=== PATIENT | male | born 1995 | race Hispanic/Latino ===

== ENCOUNTER 2016-12-25 22:22 | Emergency (ER) | payer SELFPAY ==
[2016-12-25 22:48] LABS: #Basophils 0.1 thou/uL (0.0-0.2); #Eosinphils 0.2 thou/uL (0.0-0.7); #Lymphocytes 3.6 thou/uL (1.20-3.40); #Monocytes 0.8 thou/uL (0.11-0.59); #Neutrophils 5.3 thou/uL (1.40-6.50); %Basophils 0.6 % (0.0-1.0); %Eosinophils 1.5 % (0.0-10.0); %Lymphocytes 36.7 % (21.0-51.0); %Monocytes 7.7 % (0.0-10.0); Hematocrit 49.4 % (42.0-52.0); Mean Platelet Volume 6.6 fL (7.4-10.4); Red Blood Cell (RBC) Count 5.43 mill/uL (4.70-6.10); White Blood Cell (WBC) Count 9.9 thou/uL (4.8-10.8)
[2016-12-25 23:10] LABS: ALT (SGPT) 32 U/L (8-55); AST (SGOT) 26 U/L (5-34); Alkaline Phosphatase 108 U/L (40-150); Anion Gap 15 mmol/L (10-20); BUN (Urea Nitrogen) 13 mg/dL (8.9-20.6); Bilirubin, Total 0.4 mg/dL (0.2-1.2); Calc. Creatinine Clearance 0 mL/min (70-130); Carbon Dioxide 28 mmol/L (22-29); Chloride 101 mmol/L (98-107); Estimated GFR-MDRD 88; Globulin 3.7 g/dL (2.4-3.5); Protein, Total 8.4 g/dL (6.0-8.3)
[2016-12-25 23:13] LABS: Troponin I Less than 0.010 ng/mL (< 0.028)
--- NOTE | 2016-12-25 23:47 | RAD ---
PA AND LATERAL CHEST X-RAY 12/25/2016 HISTORY: Chest pain. Cough. FINDINGS: Cardiac silhouette and pulmonary vasculature are within normal limits. Lungs are clear. Osseous st ructures are intact. IMPRESSION: No acute cardiopulmonary process. POS: [facility]
== END 2016-12-25 23:31 | disposition home or self-care (01) ==
LOC: ERS 22:22
DX: R05 Cough (principal); F32.9 Major depressive disorder, single episode, unspecified; F41.9 Anxiety disorder, unspecified
CPT/HCPCS: 71020; 80053; 82553; 84484; 85025; 93005